=== PATIENT | female | born 1965 ===

== ENCOUNTER 2016-05-17 10:31 | Emergency (ER) | payer SELFPAY ==
[2016-05-17 10:31] VITALS: BMI 41.3
[2016-05-17 10:38] VITALS: TEMP 98.2
[2016-05-17] MEDS ORDERED: Sodium Chloride 0.9% 1,000 ML IV STA (11:43)
--- NOTE | 2016-05-17 11:49 | ED PDOC ---
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 states yesterday she developed a gradual onset dizziness and feeling faint. Pt. states she felt soreness (not numbness contrary to triage note) throughout her entire body during this and shortly after she developed a pressure like headache throughout her body. Pt. feels that headaches stems from her upper back which radiates to her head. States that symptoms have persisted prompting ED visit today. Pt. states she has not taken any medications to help relieve symptoms. Denies chest pain, SOB, weakness, LOC, N/V, hx of similar episodes, hearing changes, head injury, abdominal pain. Past Medical History Reviewed: Historical Data, Nursing Documentation, Vital Signs Vital Signs: Last Vital Signs Temp 98.2 F 05/17/16 10:37 Pulse 93 H 05/17/16 10:37 Resp 20 05/17/16 10:37 BP 146/78 05/17/16 10:37 Pulse Ox 98 05/17/16 11:52 - Medical History PMH: HTN, Hyperlipidemia, Pneumonia Denies: Chronic Kidney Disease - Surgical History Surgical History: Denies: Appendectomy - Family History Family History: States: Diabetes, Hypertension - Home Medications Home Medications: Ambulatory Orders Medication Instructions Recorded Lisinopril [Zestril] 20 mg PO DAILY 05/12/15 Aspirin [Aspirin Chewable] 81 mg PO DAILY #0 chew 06/16/15 Lisinopril [Zestril] 20 mg PO DAILY #0 tab 06/16/15 amLODIPine [Norvasc] 5 mg PO DAILY 06/16/15 Meclizine [Meclizine*] 25 mg PO Q12 PRN #10 tab 10/07/15 Dicyclomine [Bentyl] 20 mg PO TID #30 tab 02/23/16 Lisinopril [Zestril] 20 mg PO DAILY 04/01/16 amLODIPine [Norvasc] 5 mg PO DAILY 04/01/16 Meclizine [Meclizine*] 1 - 2 tab PO Q6 PRN #30 tab 05/17/16 - Allergies Allergies/Adverse Reactions: Allergies Allergy/AdvReac Type Severity Reaction Status Date / Time shrimp Allergy RASH Verified 12/30/16 08:26 Review of Systems ROS Statement: Except As Marked, All Systems Reviewed And Found Negative Neurological: Positive for: Headache, Dizziness Physical Exam - Reviewed Nursing Documentation Reviewed: Yes Vital Signs Reviewed: Yes - Physical Exam Appears: Positive for: Well, Non-toxic, No Acute Distress Head Exam: Positive for: ATRAUMATIC, NORMAL INSPECTION, NORMOCEPHALIC Skin: Positive for: Normal Color, Warm. Negative for: Rash Eye Exam: Positive for: Normal appearance, EOMI, PERRL. Negative for: Nystagmus ENT: Positive for: Normal ENT Inspection Neck: Positive for: Normal, Painless ROM Cardiovascular/Chest: Positive for: Regular Rate, Rhythm Respiratory: Positive for: CNT, Normal Breath Sounds Gastrointestinal/Abdominal: Positive for: Normal Exam, Soft. Negative for: Tenderness Back: Positive for: Normal Inspection. Negative for: L CVA Tenderness, R CVA Tenderness, Vertebral Tenderness Extremity: Positive for: Normal ROM Neurologic/Psych: Positive for: Alert, clicker operator II-XII (grossly intact), Oriented, Gait (steady and unassisted; pt. seen climbing on and off stretcher without difficulty), Other (negative romberg). Negative for: Motor/Sensory Deficits, Aphasia, Facial Droop - Laboratory Results Result Diagrams: 05/17/16 12:27 05/17/16 12:27 - ECG ECG: Positive for: Interpreted By Me ECG Rhythm: Positive for: Sinus Rhythm. Negative for: ST/T Changes Rate: 85 O2 Sat by Pulse Oximetry: 98 - Progress ED Course And Treament: Labs ordered. EKG ordered. CT head w/o contrast ordered. Reglan 10mg IV, antivert 50mg PO, IV NS bolus given. CT head w/o contrast: negative. Re-evaluation Time: 14:09 (Reports good relief of dizziness and headache. ) Condition: Re-examined, Improved Disposition - Clinical Impression Clinical Impression: Vertigo - Patient ED Disposition Is Patient to be Admitted: No - Disposition Referrals: [facility] [Outside] Disposition: Routine/Home Disposition Time: 14:10 Condition: IMPROVED Prescriptions: Meclizine [Meclizine*] 1 - 2 tab PO Q6 PRN #30 tab PRN Reason: vertigo Instructions: Vertigo (ED) Print Language: NEPALI
--- NOTE | 2016-05-17 12:28 | CT ---
PROCEDURE: CT HEAD WITHOUT CONTRAST. HISTORY: Headache and dizziness COMPARISON: 03/20/2012 TECHNIQUE: Axial computed tomography images were obtained through the head/brain without intravenous contrast. Radiation dose: Total exam DLP = 774.54 mGy-cm. FINDINGS: HEMORRHAGE: No intracranial hemorrhage. BRAIN: Krueger-white matter differentiation is preserved. There is no mass, mass effect or abnormal extra-axial fluid collection. VENTRICLES: The ventricles are normal in size, shape and configuration. CALVARIUM: The skull base and calvarium are normal. PARANASAL SINUSES: Predominantly clear. MASTOID AIR CELLS: Predominantly clear. OTHER FINDINGS: None. IMPRESSION: No acute intracranial abnormality.
[2016-05-17 12:34] LABS: BASO # 0.1 K/uL (0.0-0.2); BASO % 0.7 % (0.0-2.0); EOS # 0.1 K/uL (0.0-0.7); EOS % 1.2 % (0.0-4.0); HEMATOCRIT 45.9 % (34.0-47.0); LYMPH % 19.3 % (20.0-40.0); MEAN CELL VOLUME 89.2 fl (81.0-99.0); MEAN CORPUSCULAR HEMOGLOBIN 30.7 pg (27.0-31.0); MEAN CORPUSCULAR HGB CONC 34.4 g/dL (33.0-37.0); MEAN PLATELET VOLUME 8.6 fl (7.2-11.7); MONO # 0.7 K/uL (0.0-0.8); MONO % 6.4 % (0.0-10.0); NEUT # 7.5 K/uL (1.8-7.0); NEUT % 72.4 % (50.0-75.0); NRBC % 0.1 % (0.0-0.0); WHITE BLOOD COUNT 10.3 K/uL (4.8-10.8)
[2016-05-17 13:19] LABS: CHLORIDE 106 mmol/L (98-107); POTASSIUM 3.8 MMOL/L (3.6-5.0); SODIUM 144 mmol/l (132-148)
[2016-05-17 13:21] LABS: BILIRUBIN,TOTAL 0.7 mg/dl (0.2-1.3); CARBON DIOXIDE 26 mmol/L (22-30); GFR AFRICAN-AMERICAN > 60
[2016-05-17 13:22] LABS: ALKALINE PHOSPHATASE 129 U/L (38-126); ALT/SGPT 49 U/L (9-52); AST/SGOT 42 U/L (14-36); BLOOD UREA NITROGEN 11 mg/dl (7-17); CALCIUM 9.5 mg/dL (8.4-10.2); GLUCOSE,RANDOM 113 mg/dL (65-105); TOTAL PROTEIN 8.9 G/DL (6.3-8.2)
[2016-05-17 14:11] VITALS: PULSE 85
[2016-05-17 14:28] VITALS: BP 137/85; RESP 19; O2SAT 99
--- NOTE | 2016-05-17 18:47 | CARD ---
APPROVED REPORT EKG Measurement Heart [id number] CT 166P56 [id number] <Conclusion> Normal sinus rhythm Possible Left atrial enlargement Borderline ECG
== END 2016-05-17 14:35 | disposition home or self-care (01) ==
LOC: H.ER 10:31
DX: R51 Headache (principal); R42 Dizziness and giddiness; I10 Essential (primary) hypertension; E78.5 Hyperlipidemia, unspecified

== ENCOUNTER 2016-07-27 00:50 | Emergency (ER) | payer OTHER, SELFPAY ==
[2016-07-27 00:50] VITALS: BMI 41.3
[2016-07-27] MEDS ORDERED: Sodium Chloride 0.9% 1,000 ML IV STA (02:27)
--- NOTE | 2016-07-27 02:29 | ED PDOC ---
HPI: Abdomen Time Seen by Provider: 07/27/16 01:11 Chief Complaint (Nursing): Abdominal Pain Chief Complaint (Provider): Abdominal Pain History Per: Patient Additional Complaint(s): 51 yo female, presents to ED for Left flank pain x 2 days, worse at night. Pt denies any fever chills, hematuria, dysuria, nausea or vomiting. Past Medical History Reviewed: Nursing Documentation, Vital Signs Vital Signs: Last Vital Signs Temp 98.1 F 07/27/16 05:06 Pulse 78 07/27/16 05:06 Resp 16 07/27/16 05:06 BP 136/80 07/27/16 05:06 Pulse Ox 98 07/28/16 05:47 - Medical History PMH: Graves' Disease, HTN, Hyperlipidemia, Pneumonia Denies: Chronic Kidney Disease - Surgical History Surgical History: Denies: Appendectomy - Family History Family History: States: Diabetes, Hypertension - Home Medications Home Medications: Ambulatory Orders Medication Instructions Recorded Lisinopril [Zestril] 20 mg PO DAILY 05/12/15 Aspirin [Aspirin Chewable] 81 mg PO DAILY #0 chew 06/16/15 Lisinopril [Zestril] 20 mg PO DAILY #0 tab 06/16/15 amLODIPine [Norvasc] 5 mg PO DAILY 06/16/15 Meclizine [Meclizine*] 25 mg PO Q12 PRN #10 tab 10/07/15 Dicyclomine [Bentyl] 20 mg PO TID #30 tab 02/23/16 Lisinopril [Zestril] 20 mg PO DAILY 04/01/16 amLODIPine [Norvasc] 5 mg PO DAILY 04/01/16 Meclizine [Meclizine*] 1 - 2 tab PO Q6 PRN #30 tab 05/17/16 Dicyclomine [Bentyl] 10 mg PO QID PRN #10 cap 07/27/16 - Allergies Allergies/Adverse Reactions: Allergies Allergy/AdvReac Type Severity Reaction Status Date / Time shrimp Allergy RASH Verified 07/27/16 01:30 Review of Systems ROS Statement: Except As Marked, All Systems Reviewed And Found Negative Gastrointestinal: Positive for: Abdominal Pain Physical Exam - Reviewed Nursing Documentation Reviewed: Yes Vital Signs Reviewed: Yes - Physical Exam Appears: Positive for: Well, Non-toxic, No Acute Distress Head Exam: Positive for: ATRAUMATIC, NORMAL INSPECTION, NORMOCEPHALIC Skin: Positive for: Normal Color, Warm, DRY Eye Exam: Positive for: EOMI, Normal appearance, PERRL ENT: Positive for: Normal ENT Inspection Neck: Positive for: Normal, Painless ROM Cardiovascular/Chest: Positive for: Regular Rate, Rhythm Respiratory: Positive for: CNT, Normal Breath Sounds Gastrointestinal/Abdominal: Positive for: Normal Exam, Bowel Sounds, Soft Back: Positive for: Normal Inspection Extremity: Positive for: Normal ROM Neurologic/Psych: Positive for: Alert, Oriented - Laboratory Results Result Diagrams: 07/27/16 02:35 07/27/16 02:35 - ECG O2 Sat by Pulse Oximetry: 98 Medical Decision Making Medical Decision Making: IV access established and treatment initiated with Bentyl and Toradol. Pt feeling greatly improved on re-eval CBC, COMP and UA resulted WNL Pt educated on all results and demonstrated full understanding On re-eval, abdomen soft non tender and non distended. Pt stable for discharge at this time. Imaging studies not clinically indicated. Advised to return to ED if at anytime condition worsens Disposition - Clinical Impression Clinical Impression: Abdominal cramps - Patient ED Disposition Is Patient to be Admitted: No - Disposition Disposition: Routine/Home Disposition Time: 04:00 Condition: STABLE Prescriptions: Dicyclomine [Bentyl] 10 mg PO QID PRN #10 cap PRN Reason: Pain, Mild (1-3) Instructions: Gas and Bloating (ED), Abdominal Pain (ED) Print Language: YEMENI - POA Present On Arrival: None
[2016-07-27 02:39] LABS: BASO # 0.1 K/uL (0.0-0.2); BASO % 0.7 % (0.0-2.0); EOS # 0.2 K/uL (0.0-0.7); EOS % 1.7 % (0.0-4.0); HEMATOCRIT 42.5 % (34.0-47.0); LYMPH # 2.4 K/uL (1.0-4.3); MEAN CELL VOLUME 90.7 fl (81.0-99.0); MEAN CORPUSCULAR HEMOGLOBIN 30.2 pg (27.0-31.0); MEAN CORPUSCULAR HGB CONC 33.3 g/dL (33.0-37.0); MEAN PLATELET VOLUME 8.4 fl (7.2-11.7); MONO # 1.2 K/uL (0.0-0.8); MONO % 11.5 % (0.0-10.0); NEUT % 64.1 % (50.0-75.0); NRBC % 0.1 % (0.0-0.0); RED CELL DISTRIBUTION WIDTH 13.7 % (11.5-14.5); WHITE BLOOD COUNT 10.9 K/uL (4.8-10.8)
[2016-07-27 02:43] LABS: CHLORIDE 104 mmol/L (98-107)
[2016-07-27 02:44] LABS: POTASSIUM 3.9 MMOL/L (3.6-5.0); SODIUM 141 mmol/l (132-148)
[2016-07-27 02:46] LABS: ALB/GLOB RATIO 1.1 (1.0-2.1); ALKALINE PHOSPHATASE 108 U/L (38-126); ALT/SGPT 40 U/L (9-52); AST/SGOT 36 U/L (14-36); BILIRUBIN,TOTAL 0.4 mg/dl (0.2-1.3); BLOOD UREA NITROGEN 16 mg/dl (7-17); CARBON DIOXIDE 25 mmol/L (22-30); GFR AFRICAN-AMERICAN > 60; GLUCOSE,RANDOM 102 mg/dL (65-105); TOTAL PROTEIN 8.3 G/DL (6.3-8.2)
[2016-07-27 02:47] LABS: CALCIUM 9.2 mg/dL (8.4-10.2)
[2016-07-27 02:48] LABS: RBC URINE 2 /hpf (0-3); URINE BACTERIA RARE (<OCC); URINE BILIRUBIN NEGATIVE (NEGATIVE); URINE BLOOD NEGATIVE (NEGATIVE); URINE COLOR YELLOW (YELLOW); URINE GLUCOSE (UA) NEG (Normal); URINE KETONE NEGATIVE (NEGATIVE); URINE LEUKOCYTE ESTERASE NEG Leu/uL (Negative); URINE PROTEIN NEGATIVE (NEGATIVE); URINE UROBILINOGEN 0.2-1.0 mg/dL (0.2-1.0); WBC URINE < 1 /hpf (0-5)
[2016-07-27 05:06] VITALS: BP 136/80; PULSE 78; RESP 16; TEMP 98.1
[2016-07-28 05:47] VITALS: O2SAT 98
== END 2016-07-27 05:10 | disposition home or self-care (01) ==
LOC: H.ER 00:50
DX: R10.9 Unspecified abdominal pain (principal); R14.1 Gas pain
CPT/HCPCS: 80053; 81003; 85025; 96360; 96372; 99284; J1885; J7040

== ENCOUNTER 2016-11-09 12:51 | Emergency (ER) | payer SELFPAY ==
[2016-11-09 12:52] VITALS: BMI 41.3
[2016-11-09 12:58] VITALS: RESP 16; TEMP 98.2; O2SAT 99
[2016-11-09 13:16] VITALS: BP 134/86
--- NOTE | 2016-11-09 13:27 | ED PDOC ---
HPI: Hypertension/Hypotension Time Seen by Provider: 11/09/16 13:03 Chief Complaint (Nursing): High Blood Pressure Chief Complaint (Provider): Dizziness History Per: Patient History/Exam Limitations: no limitations Onset/Duration Of Symptoms: Hrs (morning prior to arrival ) Current Symptoms Are (Timing): Still Present Additional Complaint(s): Zulma Medrano is a 51 year old female with a past medical history of hypertension and Grave's disease presenting to the ED for an evaluation of dizziness associated with headache beginning this morning prior to arrival. The patient states she checked her blood pressure today and found it to be elevated. She denies chest pain, shortness of breath, peripheral weakness, or parasthesia. Provider: KARTHIK Past Medical History Reviewed: Historical Data, Nursing Documentation, Vital Signs Vital Signs: Last Vital Signs Temp 98.2 F 11/09/16 12:54 Pulse 98 H 11/09/16 12:54 Resp 16 11/09/16 12:54 BP 134/86 11/09/16 13:16 Pulse Ox 99 11/09/16 12:54 - Medical History PMH: Graves' Disease, HTN, Hyperlipidemia, Pneumonia Denies: Chronic Kidney Disease - Surgical History Surgical History: Denies: Appendectomy - Family History Family History: States: Diabetes, Hypertension - Social History Current smoker - smoking cessation education provided: No Ex-Smoker (has not smoked in the last 12 months): No Alcohol: None Drugs: Denies - Home Medications Home Medications: Ambulatory Orders Medication Instructions Recorded Lisinopril [Zestril] 20 mg PO DAILY 05/12/15 Aspirin [Aspirin Chewable] 81 mg PO DAILY #0 chew 06/16/15 Lisinopril [Zestril] 20 mg PO DAILY #0 tab 06/16/15 amLODIPine [Norvasc] 5 mg PO DAILY 06/16/15 Meclizine [Meclizine*] 25 mg PO Q12 PRN #10 tab 10/07/15 Dicyclomine [Bentyl] 20 mg PO TID #30 tab 02/23/16 Lisinopril [Zestril] 20 mg PO DAILY 04/01/16 amLODIPine [Norvasc] 5 mg PO DAILY 04/01/16 Meclizine [Meclizine*] 1 - 2 tab PO Q6 PRN #30 tab 05/17/16 Dicyclomine [Bentyl] 10 mg PO QID PRN #10 cap 07/27/16 Meclizine [Meclizine*] 25 mg PO Q8 #15 tab 11/09/16 - Allergies Allergies/Adverse Reactions: Allergies Allergy/AdvReac Type Severity Reaction Status Date / Time shrimp Allergy RASH Verified 11/09/16 12:54 Review of Systems ROS Statement: Except As Marked, All Systems Reviewed And Found Negative Constitutional: Negative for: Weakness (no peripheral weakness ), Other (no parasthesia ) Cardiovascular: Negative for: Chest Pain Respiratory: Negative for: Shortness of Breath Neurological: Positive for: Headache, Dizziness Physical Exam - Reviewed Nursing Documentation Reviewed: Yes Vital Signs Reviewed: Yes - Physical Exam Appears: Positive for: Non-toxic, No Acute Distress Head Exam: Positive for: ATRAUMATIC, NORMOCEPHALIC Cardiovascular/Chest: Positive for: Regular Rate, Rhythm. Negative for: Murmur Respiratory: Positive for: Normal Breath Sounds. Negative for: Respiratory Distress Gastrointestinal/Abdominal: Positive for: Normal Exam, Soft. Negative for: Tenderness Extremity: Positive for: Normal ROM (full ROM) Neurologic/Psych: Positive for: Alert, Oriented (x3). Negative for: Motor/ Sensory Deficits - Laboratory Results Result Diagrams: 11/09/16 13:30 11/09/16 13:30 - ECG O2 Sat by Pulse Oximetry: 99 (RA) Pulse Ox Interpretation: Normal Medical Decision Making Medical Decision Making: Time: 13:03 Impression: Dizziness Plan: * CT Head W/O Contrast * ED EKG * CMP * CBC (with differential) * Chest Two Views (PA/LAT) [RAD] * Reevaluation Scribe Attestation: Documented by Karo Starks, acting as a scribe for Rolf Joya MD. Provider Scribe Attestation: All medical record entries made by the Scribe were at my direction and personally dictated by me. I have reviewed the chart and agree that the record accurately reflects my personal performance of the history, physical exam, medical decision making, and the department course for this patient. I have also personally directed, reviewed, and agree with the discharge instructions and disposition. Disposition - Clinical Impression Clinical Impression: Vertigo, Hypertension - Patient ED Disposition Is Patient to be Admitted: No Counseled Patient/Family Regarding: Studies Performed, Diagnosis, Need For Followup, Rx Given - Disposition Referrals: [facility] [Outside] Disposition: Routine/Home Disposition Time: 14:51 Condition: FAIR Prescriptions: Meclizine [Meclizine*] 25 mg PO Q8 #15 tab Instructions: Vertigo (ED) Forms: [facility] (Lebanese) Print Language: ICELANDIC
[2016-11-09 13:45] LABS: BASO # 0.1 K/uL (0.0-0.2); BASO % 0.6 % (0.0-2.0); EOS # 0.1 K/uL (0.0-0.7); EOS % 0.5 % (0.0-4.0); HEMATOCRIT 42.8 % (34.0-47.0); LYMPH # 2.1 K/uL (1.0-4.3); LYMPH % 17.2 % (20.0-40.0); MEAN CELL VOLUME 89.2 fl (81.0-99.0); MEAN CORPUSCULAR HEMOGLOBIN 29.9 pg (27.0-31.0); MEAN CORPUSCULAR HGB CONC 33.5 g/dL (33.0-37.0); MEAN PLATELET VOLUME 8.4 fl (7.2-11.7); MONO # 0.8 K/uL (0.0-0.8); MONO % 6.3 % (0.0-10.0); NEUT # 9.1 K/uL (1.8-7.0); NEUT % 75.4 % (50.0-75.0); RED CELL DISTRIBUTION WIDTH 13.9 % (11.5-14.5); WHITE BLOOD COUNT 12.1 K/uL (4.8-10.8)
[2016-11-09 14:02] LABS: ALB/GLOB RATIO 1.2 (1.0-2.1); ALKALINE PHOSPHATASE 111 U/L (38-126); ALT/SGPT 43 U/L (9-52); AST/SGOT 36 U/L (14-36); BILIRUBIN,TOTAL 0.6 mg/dl (0.2-1.3); BLOOD UREA NITROGEN 11 mg/dl (7-17); CALCIUM 9.4 mg/dL (8.4-10.2); CARBON DIOXIDE 25 mmol/L (22-30); CHLORIDE 104 mmol/L (98-107); GFR AFRICAN-AMERICAN > 60; GLUCOSE,RANDOM 109 mg/dL (65-105); POTASSIUM 3.8 MMOL/L (3.6-5.0); SODIUM 140 mmol/l (132-148); TOTAL PROTEIN 8.1 G/DL (6.3-8.2)
--- NOTE | 2016-11-09 14:49 | CT ---
PROCEDURE: CT HEAD WITHOUT CONTRAST. HISTORY: r/o bleed COMPARISON: Comparison is made to 05/17/2016 TECHNIQUE: Axial computed tomography images were obtained through the head/brain without intravenous contrast. Radiation dose: Total exam DLP = 20374 mGy-cm. This CT exam was performed using one or more of the following dose reduction techniques: Automated exposure control, adjustment of the mA and/or kV according to patient size, and/or use of iterative reconstruction technique. FINDINGS: HEMORRHAGE: No intracranial hemorrhage. BRAIN: No mass effect or edema. No atrophy or chronic microvascular ischemic changes. VENTRICLES: Unremarkable. No hydrocephalus. CALVARIUM: Unremarkable. PARANASAL SINUSES: Mild mucosal thickening seen at the left maxillary sinus MASTOID AIR CELLS: Unremarkable as visualized. No inflammatory changes. OTHER FINDINGS: None. IMPRESSION: No evidence of acute intracranial hemorrhage intracranial collection mass effect or midline shift.
[2016-11-09 15:08] VITALS: PULSE 87
--- NOTE | 2016-11-09 15:11 | RAD ---
HISTORY: dizziness COMPARISON: Comparison is made to 06/16/2015 TECHNIQUE: Chest PA and lateral FINDINGS: LUNGS: Small opacities at the lung bases may represent atelectasis. Otherwise no significant interval change. PLEURA: No significant pleural effusion identified. No pneumothorax apparent. CARDIOVASCULAR: The cardiac silhouette is prominent/ mildly enlarged. Normal. OSSEOUS STRUCTURES: No significant abnormalities. VISUALIZED UPPER ABDOMEN: Normal. OTHER FINDINGS: None. IMPRESSION: Bibasilar opacities may represent atelectasis. Otherwise no significant interval change.
--- NOTE | 2016-11-09 18:19 | CARD ---
APPROVED REPORT EKG Measurement Heart [id number] NV [id number] [id number] <Conclusion> Normal sinus rhythm with sinus arrhythmia Biatrial enlargement Abnormal ECG
== END 2016-11-09 15:07 | disposition home or self-care (01) ==
LOC: H.ER 12:51
DX: R42 Dizziness and giddiness (principal); I10 Essential (primary) hypertension; E05.00 Thyrotoxicosis with diffuse goiter without thyrotoxic crisis or storm; E78.5 Hyperlipidemia, unspecified; Z79.82 Long term (current) use of aspirin

== ENCOUNTER 2017-04-01 07:45 | Emergency (ER) | payer SELFPAY ==
[2017-04-01 07:45] VITALS: BMI 41.3
--- NOTE | 2017-04-01 09:12 | ED PDOC ---
HPI: General Adult Time Seen by Provider: 04/01/17 08:27 Chief Complaint (Nursing): Cough, Cold, Congestion Chief Complaint (Provider): Cough, Cold, Congestion History Per: Patient History/Exam Limitations: no limitations Onset/Duration Of Symptoms: Days (x 5) Current Symptoms Are (Timing): Still Present Additional Complaint(s): Zulma is a 51 year old female, with a past medical history of high blood pressure, who presents to the emergency department complaining of nasal congestion associated with trouble breathing through nose and sore throat X 3 days, no difficulty swallowing. Denies fever, cough, vomiting, abdominal pain, SOB, CP. PMD: Ball Past Medical History Reviewed: Historical Data, Nursing Documentation, Vital Signs Vital Signs: Last Vital Signs Temp 98.2 F 04/01/17 10:00 Pulse 68 04/01/17 10:00 Resp 14 04/01/17 10:00 BP 142/81 04/01/17 10:00 Pulse Ox 100 04/01/17 10:00 - Medical History PMH: Graves' Disease, HTN, Hyperlipidemia, Pneumonia Denies: Chronic Kidney Disease - Surgical History Surgical History: Denies: Appendectomy - Family History Family History: States: Diabetes, Hypertension - Home Medications Home Medications: Ambulatory Orders Medication Instructions Recorded Lisinopril [Zestril] 20 mg PO DAILY 05/12/15 Aspirin [Aspirin Chewable] 81 mg PO DAILY #0 chew 06/16/15 Lisinopril [Zestril] 20 mg PO DAILY #0 tab 06/16/15 amLODIPine [Norvasc] 5 mg PO DAILY 06/16/15 Meclizine [Meclizine*] 25 mg PO Q12 PRN #10 tab 10/07/15 Dicyclomine [Bentyl] 20 mg PO TID #30 tab 02/23/16 Lisinopril [Zestril] 20 mg PO DAILY 04/01/16 amLODIPine [Norvasc] 5 mg PO DAILY 04/01/16 Meclizine [Meclizine*] 1 - 2 tab PO Q6 PRN #30 tab 05/17/16 Dicyclomine [Bentyl] 10 mg PO QID PRN #10 cap 07/27/16 Meclizine [Meclizine*] 25 mg PO Q8 #15 tab 11/09/16 Azithromycin [Zithromax] 500 mg PO DAILY #4 tab 04/01/17 - Allergies Allergies/Adverse Reactions: Allergies Allergy/AdvReac Type Severity Reaction Status Date / Time shrimp Allergy RASH Verified 11/09/16 12:54 Review of Systems ROS Statement: Except As Marked, All Systems Reviewed And Found Negative Constitutional: Negative for: Fever ENT: Positive for: Throat Pain Respiratory: Positive for: Sputum, Other (Trouble breathing) Musculoskeletal: Positive for: Back Pain Physical Exam - Reviewed Nursing Documentation Reviewed: Yes Vital Signs Reviewed: Yes - Physical Exam Appears: Positive for: Well, Non-toxic, No Acute Distress (Speaking full sentences) Head Exam: Positive for: NORMAL INSPECTION Skin: Positive for: Normal Color, Warm, Dry Eye Exam: Positive for: Normal appearance ENT: Positive for: Pharynx Is (Clear), Nasal Congestion, Pharyngeal Erythema. Negative for: Tonsillar Exudate, Tonsillar Swelling Neck: Positive for: Normal Cardiovascular/Chest: Positive for: Regular Rate, Rhythm Respiratory: Positive for: Normal Breath Sounds. Negative for: Respiratory Distress Gastrointestinal/Abdominal: Positive for: Normal Exam Back: Positive for: Normal Inspection Extremity: Positive for: Normal ROM. Negative for: Deformity Neurologic/Psych: Positive for: Alert, Oriented (x 3) - ECG O2 Sat by Pulse Oximetry: 98 (RA) Pulse Ox Interpretation: Normal Medical Decision Making Medical Decision Making: Time: 08:37 Impression: Nasal Congestion Plan: - ED Urine - Influenza A B Stat - Rapid Strep Group A Antigen Scribe Attestation: Documented by Bernabe Storm, acting as a scribe for Kerri Greer MD Provider Scribe Attestation: All medical record entries made by the Scribe were at my direction and personally dictated by me. I have reviewed the chart and agree that the record accurately reflects my personal performance of the history, physical exam, medical decision making, and the department course for this patient. I have also personally directed, reviewed, and agree with the discharge instructions and disposition. Disposition - Clinical Impression Clinical Impression: Strep pharyngitis - Patient ED Disposition Is Patient to be Admitted: No - Disposition Referrals: [facility] [Outside] Disposition: Routine/Home Disposition Time: 10:23 Condition: STABLE Prescriptions: Azithromycin [Zithromax] 500 mg PO DAILY #4 tab Instructions: Strep Throat (ED) Forms: [facility] (Welsh) Print Language: AMHARIC
[2017-04-01 10:43] VITALS: BP 142/81; PULSE 68; RESP 14; TEMP 98.2
[2017-04-02 15:59] VITALS: O2SAT 98
== END 2017-04-01 10:35 | disposition home or self-care (01) ==
LOC: H.ER 07:45
DX: J02.0 Streptococcal pharyngitis (principal); E05.00 Thyrotoxicosis with diffuse goiter without thyrotoxic crisis or storm; E78.5 Hyperlipidemia, unspecified; I10 Essential (primary) hypertension; Z79.82 Long term (current) use of aspirin

== ENCOUNTER 2017-12-06 15:07 | Emergency (ER) | payer SELFPAY ==
[2017-12-06 15:07] VITALS: BMI 41.3
[2017-12-06] MEDS ORDERED: Sodium Chloride 0.9% 1,000 ML IV STA (16:44)
--- NOTE | 2017-12-06 16:47 | ED PDOC ---
HPI: Headache Chief Complaint (Provider): HEADACHE History Per: Patient (52 Y/O FEMALE H/O DM/HTN HERE WITH HEADACHE NOTED SINCE THIS MORNING. NOTES ADDITIONAL COMPLAINT OF CHEST PAIN. STATES SHE RECENTLY INCREASED LISINOPRIL FROM 20 TO 40MG DAILY 09/25 BUT DOES NOT FEEL LIKE HER BP IS CONTROLLED.) <Sukhi Rios - Last Filed: 12/06/17 19:35> <Lynn Medina - Last Filed: 12/07/17 21:35> Time Seen by Provider: 12/06/17 16:32 Chief Complaint (Nursing): Headache Past Medical History Reviewed: Historical Data, Nursing Documentation, Vital Signs Vital Signs: Last Vital Signs Temp 98.1 F 12/06/17 15:49 Pulse 91 H 12/06/17 15:49 Resp 16 12/06/17 15:49 BP 193/100 H 12/06/17 15:49 Pulse Ox 100 12/06/17 15:49 - Medical History PMH: Graves' Disease, HTN, Hyperlipidemia, Pneumonia Denies: Chronic Kidney Disease - Surgical History Surgical History: Denies: Appendectomy - Family History Family History: States: Diabetes, Hypertension <Sukhi Rios - Last Filed: 12/06/17 19:35> Vital Signs: Last Vital Signs Temp 97.9 F 12/06/17 20:12 Pulse 92 H 12/06/17 20:12 Resp 18 12/06/17 20:12 BP 145/84 12/06/17 20:12 Pulse Ox 99 12/06/17 20:12 <Lynn Medina - Last Filed: 12/07/17 21:35> - Home Medications Home Medications: Ambulatory Orders Medication Instructions Recorded RX: Lisinopril [Zestril] 20 mg PO DAILY 05/12/15 RX: Aspirin [Aspirin Chewable] 81 mg PO DAILY #0 chew 06/16/15 RX: Lisinopril [Zestril] 20 mg PO DAILY #0 tab 06/16/15 RX: amLODIPine [Norvasc] 5 mg PO DAILY 06/16/15 RX: Meclizine [Meclizine*] 25 mg PO Q12 PRN #10 tab 10/07/15 Dicyclomine [Bentyl] 20 mg PO TID #30 tab 02/23/16 Lisinopril [Zestril] 20 mg PO DAILY 04/01/16 amLODIPine [Norvasc] 5 mg PO DAILY 04/01/16 RX: Meclizine [Meclizine*] 1 - 2 tab PO Q6 PRN #30 tab 05/17/16 Dicyclomine [Bentyl] 10 mg PO QID PRN #10 cap 07/27/16 RX: Meclizine [Meclizine*] 25 mg PO Q8 #15 tab 11/09/16 Azithromycin [Zithromax] 500 mg PO DAILY #4 tab 04/01/17 Alprazolam [Xanax] 0.5 mg PO ONCE PRN #1 tab 12/06/17 - Allergies Allergies/Adverse Reactions: Allergies Allergy/AdvReac Type Severity Reaction Status Date / Time shrimp Allergy RASH Verified 12/06/17 15:49 Review of Systems ROS Statement: Except As Marked, All Systems Reviewed And Found Negative <Sukhi Rios - Last Filed: 12/06/17 19:35> Physical Exam - Reviewed Nursing Documentation Reviewed: Yes Vital Signs Reviewed: Yes - Physical Exam Appears: Positive for: Well, Non-toxic, No Acute Distress Head Exam: Positive for: ATRAUMATIC, NORMAL INSPECTION, NORMOCEPHALIC Skin: Positive for: Normal Color, Warm, DRY Eye Exam: Positive for: EOMI, Normal appearance, PERRL ENT: Positive for: Normal ENT Inspection Neck: Positive for: Normal, Painless ROM Cardiovascular/Chest: Positive for: Regular Rate, Rhythm Respiratory: Positive for: CNT, Normal Breath Sounds Gastrointestinal/Abdominal: Positive for: Normal Exam, Soft Back: Positive for: Normal Inspection Extremity: Positive for: Normal ROM Neurologic/Psych: Positive for: Alert, Oriented <Sukhi Rios - Last Filed: 12/06/17 19:35> - Laboratory Results Result Diagrams: 12/06/17 17:25 12/06/17 17:25 - ECG O2 Sat by Pulse Oximetry: 100 - Progress ED Course And Treament: EKG: SINUS TACHYCARDIA 103 BPM; NO ECTOPY NO ACUTE CHANGES HEAD CT: NAD REGLAN 10MG IV TYLENOL 975MG X 1 DOSE NS 1 LITER 500 ML PER HOUR PATIENT NOTES SHE IS PAIN-FREE. REPEAT BP 145/98 PATIENT RE-EVALUATED NOTED ANXIOUS WHILE READING BIBLE. UPON RE--INTERVIEW PATIENT STARTS LAUGHING, STATES SHE HAS BEEN STRESSED B/C SHE IS STUDYING A SUBJECT AND IS HAVING DIFFICULTY MEMORIZING IT. D/W HER IMPORTANCE OF F/U FOR EVALUATION OF HER RESPONSE TO STRESS. WILL GIVE HER INFO REGARDING [facility] <Sukhi Rios - Last Filed: 12/06/17 19:35> - Laboratory Results Result Diagrams: 12/06/17 17:25 12/06/17 17:25 <Lynn Medina - Last Filed: 12/07/17 21:35> Disposition - Patient ED Disposition Is Patient to be Admitted: No - Disposition Disposition: Routine/Home Disposition Time: 19:33 <Sukhi Rios - Last Filed: 12/06/17 19:35> <Lynn Medina - Last Filed: 12/07/17 21:35> - Clinical Impression Clinical Impression: Headache, Stress reaction - Disposition Referrals: FAMILY PROVIDER,NO [Primary Care Provider] - [facility] [Outside] Condition: FAIR Prescriptions: Alprazolam [Xanax] 0.5 mg PO ONCE PRN #1 tab PRN Reason: Anxiety Instructions: Headache, Adult, Anxiety, Adult (DC) Forms: [facility] ED School/Work Excuse Print Language: SUDANESE - PA / KST OPERATOR / Resident Statement / has reviewed & agrees with the documentation as recorded. <Lynn Medina - Last Filed: 12/07/17 21:35>
[2017-12-06 17:30] LABS: BASO % 0.3 % (0.0-2.0); EOS # 0.1 K/uL (0.0-0.7); EOS % 0.5 % (0.0-4.0); HEMOGLOBIN 15.8 g/dL (12.0-16.0); LYMPH # 2.3 K/uL (1.0-4.3); LYMPH % 17.4 % (20.0-40.0); MEAN CORPUSCULAR HEMOGLOBIN 30.7 pg (27.0-31.0); MEAN CORPUSCULAR HGB CONC 34.1 g/dL (33.0-37.0); MEAN PLATELET VOLUME 8.4 fl (7.2-11.7); MONO # 0.8 K/uL (0.0-0.8); MONO % 5.8 % (0.0-10.0); NEUT # 9.9 K/uL (1.8-7.0); NRBC % 0.1 % (0.0-0.0); RBC 5.15 Mil/uL (3.80-5.20)
--- NOTE | 2017-12-06 17:41 | CT ---
Date of service: 12/06/2017 PROCEDURE: CT HEAD WITHOUT CONTRAST. HISTORY: HEADACHE COMPARISON: Noncontrast head CT 11/09/2016. TECHNIQUE: Axial computed tomography images were obtained through the head/brain without intravenous contrast. Radiation dose: Total exam DLP = 790.10 mGy-cm. This CT exam was performed using one or more of the following dose reduction techniques: Automated exposure control, adjustment of the mA and/or kV according to patient size, and/or use of iterative reconstruction technique. FINDINGS: HEMORRHAGE: No intracranial hemorrhage. BRAIN: Normal gordon-white matter differentiation and density are appreciated throughout the cerebrum and cerebellum with the brainstem appearing unremarkable as well. There is no mass effect. There is no suspicious extra-axial fluid collection and the midline brain anatomy appears diffusely unremarkable. Minimal right basal ganglia calcifications reiterated. VENTRICLES: Unremarkable. No hydrocephalus. CALVARIUM: Unremarkable. PARANASAL SINUSES: Unremarkable as visualized. No significant inflammatory changes. MASTOID AIR CELLS: Unremarkable as visualized. No inflammatory changes. OTHER FINDINGS: None. IMPRESSION: Unremarkable noncontrast head CT, stable in the interval.
[2017-12-06 17:43] LABS: BLOOD UREA NITROGEN 15 mg/dl (7-17); GFR NON-AFRICAN AMERICAN > 60
[2017-12-06 17:44] LABS: ALBUMIN 4.3 g/dL (3.5-5.0); ALT/SGPT 40 U/L (9-52); AST/SGOT 44 U/L (14-36); CALCIUM 9.5 mg/dL (8.4-10.2)
[2017-12-06 19:20] LABS: SQUAMOUS EPITHIAL 7 /hpf (0-5); URINE BACTERIA MOD (<OCC); URINE BILIRUBIN NEGATIVE (NEGATIVE); URINE BLOOD NEGATIVE (NEGATIVE); URINE CLARITY TURBID (Clear); URINE COLOR YELLOW (YELLOW); URINE GLUCOSE (UA) NEG (Normal); URINE LEUKOCYTE ESTERASE NEG Leu/uL (Negative); URINE PROTEIN NEGATIVE (NEGATIVE); URINE UROBILINOGEN 0.2-1.0 mg/dL (0.2-1.0)
[2017-12-06 20:14] VITALS: BP 145/84; PULSE 92; RESP 18; TEMP 97.9; O2SAT 99
--- NOTE | 2017-12-07 10:46 | CARD ---
APPROVED REPORT Date of service: 12/06/2017 EKG Measurement Heart [id number] <Conclusion> Sinus tachycardia ST & T wave abnormality, consider lateral ischemia Abnormal ECG
== END 2017-12-06 20:13 | disposition home or self-care (01) ==
LOC: H.ER 15:07
DX: R51 Headache (principal); F43.9 Reaction to severe stress, unspecified; I10 Essential (primary) hypertension; Z79.899 Other long term (current) drug therapy; Z79.82 Long term (current) use of aspirin; E05.00 Thyrotoxicosis with diffuse goiter without thyrotoxic crisis or storm
CPT/HCPCS: 70450; 80053; 81003; 81025; 83735; 84484; 85025; 93005; 96374; 99285; J2765; J7030

== ENCOUNTER 2018-02-19 12:34 | Emergency (ER) | payer SELFPAY ==
[2018-02-19 12:34] VITALS: BMI 41.3
[2018-02-19 12:46] VITALS: RESP 18
--- NOTE | 2018-02-19 13:05 | ED PDOC ---
HPI: Hypertension/Hypotension Time Seen by Provider: 02/19/18 12:53 Chief Complaint (Nursing): High Blood Pressure Chief Complaint (Provider): High Blood Pressure History Per: Patient History/Exam Limitations: no limitations Current Symptoms Are (Timing): Still Present Additional Complaint(s): 52 year old female, with a past medical history of hypertension, presents to the ED complaining of a headache and is concerned her blood pressure may be elevated. Patient was seen by her PMD and was prescribed antihypertensive medications but did not get the prescriptions filled. She denies chest pain, shortness of breath, dizziness, or focal weakness. PMD: Jennie Dai Past Medical History Reviewed: Historical Data, Nursing Documentation, Vital Signs Vital Signs: Last Vital Signs Temp 98.1 F 02/19/18 12:42 Pulse 87 02/19/18 12:42 Resp 18 02/19/18 12:42 BP 194/107 H 02/19/18 12:42 Pulse Ox 99 02/19/18 12:42 - Medical History PMH: Graves' Disease, HTN, Hyperlipidemia, Pneumonia Denies: Chronic Kidney Disease - Surgical History Surgical History: No Surg Hx Denies: Appendectomy - Family History Family History: States: Diabetes, Hypertension - Immunization History Hx Tetanus Toxoid Vaccination: No Hx Influenza Vaccination: No Hx Pneumococcal Vaccination: No - Home Medications Home Medications: Ambulatory Orders Medication Instructions Recorded Lisinopril [Zestril] 20 mg PO DAILY 05/12/15 Aspirin [Aspirin Chewable] 81 mg PO DAILY #0 chew 06/16/15 Lisinopril [Zestril] 20 mg PO DAILY #0 tab 06/16/15 amLODIPine [Norvasc] 5 mg PO DAILY 06/16/15 Meclizine [Meclizine*] 25 mg PO Q12 PRN #10 tab 10/07/15 Dicyclomine [Bentyl] 20 mg PO TID #30 tab 02/23/16 Lisinopril [Zestril] 20 mg PO DAILY 04/01/16 amLODIPine [Norvasc] 5 mg PO DAILY 04/01/16 Meclizine [Meclizine*] 1 - 2 tab PO Q6 PRN #30 tab 05/17/16 Dicyclomine [Bentyl] 10 mg PO QID PRN #10 cap 07/27/16 Meclizine [Meclizine*] 25 mg PO Q8 #15 tab 11/09/16 Azithromycin [Zithromax] 500 mg PO DAILY #4 tab 04/01/17 Alprazolam [Xanax] 0.5 mg PO ONCE PRN #1 tab 12/06/17 - Allergies Allergies/Adverse Reactions: Allergies Allergy/AdvReac Type Severity Reaction Status Date / Time shrimp Allergy RASH Verified 02/19/18 12:40 Review of Systems ROS Statement: Except As Marked, All Systems Reviewed And Found Negative Cardiovascular: Negative for: Chest Pain Respiratory: Negative for: Shortness of Breath Neurological: Positive for: Headache. Negative for: Weakness (focal weakness), Dizziness Physical Exam - Reviewed Nursing Documentation Reviewed: Yes Vital Signs Reviewed: Yes - Physical Exam Appears: Positive for: Non-toxic, No Acute Distress Head Exam: Positive for: ATRAUMATIC, NORMOCEPHALIC Skin: Positive for: Normal Color, Warm, Dry Eye Exam: Positive for: Normal appearance Neck: Positive for: Normal, Painless ROM Cardiovascular/Chest: Positive for: Regular Rate, Rhythm. Negative for: Murmur Respiratory: Positive for: Normal Breath Sounds. Negative for: Wheezing, Respiratory Distress Extremity: Positive for: Normal ROM Neurologic/Psych: Positive for: Alert, Oriented (x3). Negative for: Motor/Sensory Deficits - ECG O2 Sat by Pulse Oximetry: 99 (RA) Pulse Ox Interpretation: Normal Medical Decision Making Medical Decision Making: Initial Plan: --ECG --Metoprolol 25mg PO Scribe Attestation: Documented by Ventura Starks acting as a scribe for Rolf Joya MD. Provider Scribe Attestation: All medical record entries made by the Scribe were at my direction and personally dictated by me. I have reviewed the chart and agree that the record accurately reflects my personal performance of the history, physical exam, medical decision making, and the department course for this patient. I have also personally directed, reviewed, and agree with the discharge instructions and disposition. Disposition - Clinical Impression Clinical Impression: Hypertension - Patient ED Disposition Is Patient to be Admitted: No Counseled Patient/Family Regarding: Studies Performed, Diagnosis, Need For Followup - Disposition Referrals: [facility] [Outside] Disposition: Routine/Home Disposition Time: 14:32 Condition: FAIR Additional Instructions: Fill prescriptions for blood pressure Instructions: High Blood Pressure in Adults Forms: [facility] (Gibraltarian) Print Language: HEBREW
[2018-02-19 15:10] VITALS: BP 148/96; PULSE 82; TEMP 97.8; O2SAT 100
--- NOTE | 2018-02-19 20:50 | CARD ---
APPROVED REPORT Date of service: 02/19/2018 EKG Measurement Heart [id number] [id number] <Conclusion> Normal sinus rhythm Biatrial enlargement Nonspecific ST abnormality Abnormal ECG
== END 2018-02-19 15:10 | disposition home or self-care (01) ==
LOC: H.ER 12:34
DX: I10 Essential (primary) hypertension (principal); I11.9 Hypertensive heart disease without heart failure; E05.00 Thyrotoxicosis with diffuse goiter without thyrotoxic crisis or storm; E78.5 Hyperlipidemia, unspecified; I51.7 Cardiomegaly

== ENCOUNTER 2018-03-14 12:08 | Emergency (ER) | payer SELFPAY ==
[2018-03-14 12:09] VITALS: BMI 41.3
--- NOTE | 2018-03-14 13:43 | ED PDOC ---
HPI: General Adult Time Seen by Provider: 03/14/18 12:26 Chief Complaint (Nursing): Chest Pain History Per: Patient (Zulma is here because her home BP monitor showed systolic readings of 160's and diastolics of 90's. She is on 3 BP meds (lisinopril, nifedipine and hctz). Two of these three were added by her [facility] MD 3-4 weeks ago. She had reported having right sided chest and flank pain this morning along with headaches. She no longer has chest pain at present.) History/Exam Limitations: no limitations Past Medical History Reviewed: Historical Data, Nursing Documentation, Vital Signs Vital Signs: Last Vital Signs Temp 97.1 F L 03/14/18 12:19 Pulse 92 H 03/14/18 12:19 Resp 18 03/14/18 12:19 BP 160/85 H 03/14/18 13:04 Pulse Ox 97 03/14/18 12:19 - Medical History PMH: No Chronic Diseases, Graves' Disease, HTN, Hyperlipidemia, Pneumonia Denies: Chronic Kidney Disease - Surgical History Surgical History: Denies: Appendectomy - Family History Family History: States: No Known Family Hx, Diabetes, Hypertension - Immunization History Hx Tetanus Toxoid Vaccination: No Hx Influenza Vaccination: No Hx Pneumococcal Vaccination: No - Home Medications Home Medications: Ambulatory Orders Medication Instructions Recorded Lisinopril [Zestril] 20 mg PO DAILY 05/12/15 Aspirin [Aspirin Chewable] 81 mg PO DAILY #0 chew 06/16/15 Lisinopril [Zestril] 20 mg PO DAILY #0 tab 06/16/15 amLODIPine [Norvasc] 5 mg PO DAILY 06/16/15 Meclizine [Meclizine*] 25 mg PO Q12 PRN #10 tab 10/07/15 Dicyclomine [Bentyl] 20 mg PO TID #30 tab 02/23/16 Lisinopril [Zestril] 20 mg PO DAILY 04/01/16 amLODIPine [Norvasc] 5 mg PO DAILY 04/01/16 Meclizine [Meclizine*] 1 - 2 tab PO Q6 PRN #30 tab 05/17/16 Dicyclomine [Bentyl] 10 mg PO QID PRN #10 cap 07/27/16 Meclizine [Meclizine*] 25 mg PO Q8 #15 tab 11/09/16 Azithromycin [Zithromax] 500 mg PO DAILY #4 tab 04/01/17 Alprazolam [Xanax] 0.5 mg PO ONCE PRN #1 tab 12/06/17 - Allergies Allergies/Adverse Reactions: Allergies Allergy/AdvReac Type Severity Reaction Status Date / Time shrimp Allergy RASH Verified 02/19/18 12:40 Review of Systems ROS Statement: Except As Marked, All Systems Reviewed And Found Negative Constitutional: Negative for: Fever Neurological: Positive for: Headache Physical Exam - Reviewed Nursing Documentation Reviewed: Yes Vital Signs Reviewed: Yes - Physical Exam Appears: Positive for: Well, Non-toxic, No Acute Distress Head Exam: Positive for: ATRAUMATIC, NORMAL INSPECTION, NORMOCEPHALIC Skin: Positive for: Normal Color, Warm, DRY Eye Exam: Positive for: EOMI, Normal appearance, PERRL ENT: Positive for: Normal ENT Inspection Neck: Positive for: Normal, Painless ROM Cardiovascular/Chest: Positive for: Regular Rate, Rhythm Respiratory: Positive for: CNT, Normal Breath Sounds Gastrointestinal/Abdominal: Positive for: Normal Exam, Soft Back: Positive for: Normal Inspection Extremity: Positive for: Normal ROM Neurologic/Psych: Positive for: Alert, Oriented - ECG O2 Sat by Pulse Oximetry: 97 Disposition - Clinical Impression Clinical Impression: Hypertension - Patient ED Disposition Is Patient to be Admitted: No Doctor Will See Patient In The: Office Counseled Patient/Family Regarding: Diagnosis, Need For Followup - Disposition Referrals: [facility] [Outside] [facility] [Outside] Disposition: Routine/Home Disposition Time: 13:00 Condition: STABLE Instructions: High Blood Pressure in Adults Print Language: ALBANIAN - POA Present On Arrival: None
[2018-03-14 14:11] VITALS: BP 127/78; PULSE 78; RESP 19; TEMP 96.7; O2SAT 98
== END 2018-03-14 14:12 | disposition home or self-care (01) ==
LOC: H.ER 12:08
DX: I10 Essential (primary) hypertension (principal); E05.00 Thyrotoxicosis with diffuse goiter without thyrotoxic crisis or storm

== ENCOUNTER 2018-08-01 15:13 | Emergency (ER) | payer SELFPAY ==
[2018-08-01 15:23] VITALS: BP 156/91; PULSE 88; RESP 18; TEMP 98.4; O2SAT 98; BMI 41.5
--- NOTE | 2018-08-01 15:48 | ED PDOC ---
HPI: Headache Time Seen by Provider: 08/01/18 15:40 Chief Complaint (Nursing): Headache Chief Complaint (Provider): Headache History Per: Patient History/Exam Limitations: no limitations Onset/Duration Of Symptoms: Hrs Current Symptoms Are (Timing): Still Present Additional Complaint(s): 53 y/o female presents to the ED for evaluation of a left sided headache involving the eye and associated numbness to the middle of the tongue that lasted for about two hours earlier today. Patient reports both symptoms have now resolved spontaneously and she presented here because she is concerned. Otherwise, patient denies history of migraines, weakness or difficulty speaking. PMD: Ansley Huang Past Medical History Reviewed: Historical Data, Nursing Documentation, Vital Signs Vital Signs: Last Vital Signs Temp 98.4 F 08/01/18 15:22 Pulse 88 08/01/18 15:22 Resp 18 08/01/18 15:22 BP 156/91 H 08/01/18 15:22 Pulse Ox 98 08/01/18 15:22 - Medical History PMH: Graves' Disease, HTN, Hyperlipidemia, Pneumonia Denies: Chronic Kidney Disease - Surgical History Surgical History: No Surg Hx Denies: Appendectomy - Family History Family History: States: Diabetes, Hypertension - Immunization History Hx Tetanus Toxoid Vaccination: No Hx Influenza Vaccination: No Hx Pneumococcal Vaccination: No - Home Medications Home Medications: Ambulatory Orders Medication Instructions Recorded Lisinopril [Zestril] 20 mg PO DAILY 05/12/15 Aspirin [Aspirin Chewable] 81 mg PO DAILY #0 chew 06/16/15 Lisinopril [Zestril] 20 mg PO DAILY #0 tab 06/16/15 amLODIPine [Norvasc] 5 mg PO DAILY 06/16/15 Meclizine [Meclizine*] 25 mg PO Q12 PRN #10 tab 10/07/15 Dicyclomine [Bentyl] 20 mg PO TID #30 tab 02/23/16 Lisinopril [Zestril] 20 mg PO DAILY 04/01/16 amLODIPine [Norvasc] 5 mg PO DAILY 04/01/16 Meclizine [Meclizine*] 1 - 2 tab PO Q6 PRN #30 tab 05/17/16 Dicyclomine [Bentyl] 10 mg PO QID PRN #10 cap 07/27/16 Meclizine [Meclizine*] 25 mg PO Q8 #15 tab 11/09/16 Azithromycin [Zithromax] 500 mg PO DAILY #4 tab 04/01/17 Alprazolam [Xanax] 0.5 mg PO ONCE PRN #1 tab 12/06/17 Acetaminophen [Tylenol 325mg tab] 325 mg PO Q6 #20 tab 05/18/18 - Allergies Allergies/Adverse Reactions: Allergies Allergy/AdvReac Type Severity Reaction Status Date / Time shrimp Allergy RASH Verified 05/18/18 19:10 Review of Systems ROS Statement: Except As Marked, All Systems Reviewed And Found Negative Neurological: Positive for: Numbness, Headache Physical Exam - Reviewed Nursing Documentation Reviewed: Yes Vital Signs Reviewed: Yes - Physical Exam Appears: Positive for: Well, Non-toxic, No Acute Distress Head Exam: Positive for: ATRAUMATIC, NORMOCEPHALIC Skin: Positive for: Normal Color, Warm, Dry Eye Exam: Positive for: Normal appearance, EOMI, PERRL Neck: Positive for: Normal, Painless ROM Cardiovascular/Chest: Positive for: Regular Rate, Rhythm. Negative for: Murmur Respiratory: Positive for: Normal Breath Sounds. Negative for: Respiratory Distress Extremity: Positive for: Normal ROM Neurological/Psych: Positive for: Awake, Alert, Symmetric/Intact Strength (equal strengths in all extremities (5/5)), Oriented (x3), Gait (steady), Cerebellar Tests (normal), slotter operator II-XII (intact), Other (no dysarthia, ). Negative for: Motor/Sensory Deficits, Facial Droop - Laboratory Results Result Diagrams: 08/01/18 15:56 08/01/18 15:56 - ECG O2 Sat by Pulse Oximetry: 98 - Progress ED Course And Treament: HEAD CT IMPRESSION: No acute intracranial findings. Incidental bilateral exophthalmos. Medical Decision Making Medical Decision Making: Time: 1541 Impression: Headache Plan: -- CT Head w/o Contrast -- CMP -- Magnesium -- Phosphorus -- CBC with Differentials Accession No. : [id number] Patient Name / ID : TEE URENA / [id number] Exam Date : 08/01/2018 15:59:28 ( Approved ) Study Comment : Sex / Age : F / 53Y Creator : Kirby Gottlieb MD Dictator : Kirby Gottlieb MD Procurement Agent : Integrated Marketing Manager : Kirby Gottlieb MD Approver2 : Report Date : 08/01/2018 16:14:38 My Comment : Date of service: 08/01/2018 PROCEDURE: CT HEAD WITHOUT CONTRAST. HISTORY: tongue numbness COMPARISON: None available. TECHNIQUE: Axial computed tomography images were obtained through the head/brain without intravenous contrast. Radiation dose: Total exam DLP = 786.91 mGy-cm. This CT exam was performed using one or more of the following dose reduction techniques: Automated exposure control, adjustment of the mA and/or kV according to patient size, and/or use of iterative reconstruction technique. FINDINGS: HEMORRHAGE: No intracranial hemorrhage. BRAIN: Normal gordon-white matter differentiation and density are appreciated throughout the cerebrum and cerebellum with the brainstem appearing unremarkable as well. There is no mass effect. There is no suspicious extra-axial fluid collection and the midline brain anatomy appears diffusely unremarkable. VENTRICLES: Unremarkable. No hydrocephalus. CALVARIUM: Unremarkable. PARANASAL SINUSES: Unremarkable as visualized. No significant inflammatory changes. MASTOID AIR CELLS: Unremarkable as visualized. No inflammatory changes. OTHER FINDINGS: Incidental bilateral exophthalmos. No gross postseptal orbital mass appreciable bilaterally. No prominent extraocular muscular hypertrophy. IMPRESSION: No acute intracranial findings. Incidental bilateral exophthalmos. Scribe Attestation: Documented by Mukesh Cardenas, acting as a scribe forSetu Rios, PA-C. Provider Scribe Attestation: All medical record entries made by the Scribe were at my direction and personally dictated by me. I have reviewed the chart and agree that the record accurately reflects my personal performance of the history, physical exam, medical decision making, and the department course for this patient. I have also personally directed, reviewed, and agree with the discharge instructions and disposition. Disposition - Clinical Impression Clinical Impression: Headache, Numbness of tongue - Patient ED Disposition Is Patient to be Admitted: No - Disposition Referrals: [facility] [Outside] Keaton Yun MD [Medical Doctor] - Disposition: Routine/Home Disposition Time: 17:19 Condition: FAIR Instructions: Headache, Adult, Paresthesias (DC) Print Language: LAO
[2018-08-01 16:12] LABS: BASO % 0.4 % (0.0-2.0); EOS # 0.1 K/uL (0.0-0.7); EOS % 0.7 % (0.0-4.0); HEMOGLOBIN 15.3 g/dL (12.0-16.0); LYMPH # 2.3 K/uL (1.0-4.3); LYMPH % 18.2 % (20.0-40.0); MEAN CELL VOLUME 91.8 fl (81.0-99.0); MEAN CORPUSCULAR HEMOGLOBIN 31.6 pg (27.0-31.0); MEAN CORPUSCULAR HGB CONC 34.5 g/dL (33.0-37.0); MEAN PLATELET VOLUME 8.5 fl (7.2-11.7); MONO # 0.7 K/uL (0.0-0.8); MONO % 5.3 % (0.0-10.0); NEUT # 9.4 K/uL (1.8-7.0); NEUT % 75.4 % (50.0-75.0); NRBC % 0.1 % (0.0-0.0); RBC 4.83 Mil/uL (3.80-5.20); RED CELL DISTRIBUTION WIDTH 13.6 % (11.5-14.5); WHITE BLOOD COUNT 12.5 K/uL (4.8-10.8)
--- NOTE | 2018-08-01 16:18 | CT ---
Date of service: 08/01/2018 PROCEDURE: CT HEAD WITHOUT CONTRAST. HISTORY: tongue numbness COMPARISON: None available. TECHNIQUE: Axial computed tomography images were obtained through the head/brain without intravenous contrast. Radiation dose: Total exam DLP = 786.91 mGy-cm. This CT exam was performed using one or more of the following dose reduction techniques: Automated exposure control, adjustment of the mA and/or kV according to patient size, and/or use of iterative reconstruction technique. FINDINGS: HEMORRHAGE: No intracranial hemorrhage. BRAIN: Normal gordon-white matter differentiation and density are appreciated throughout the cerebrum and cerebellum with the brainstem appearing unremarkable as well. There is no mass effect. There is no suspicious extra-axial fluid collection and the midline brain anatomy appears diffusely unremarkable. VENTRICLES: Unremarkable. No hydrocephalus. CALVARIUM: Unremarkable. PARANASAL SINUSES: Unremarkable as visualized. No significant inflammatory changes. MASTOID AIR CELLS: Unremarkable as visualized. No inflammatory changes. OTHER FINDINGS: Incidental bilateral exophthalmos. No gross postseptal orbital mass appreciable bilaterally. No prominent extraocular muscular hypertrophy. IMPRESSION: No acute intracranial findings. Incidental bilateral exophthalmos.
[2018-08-01 16:29] LABS: ALB/GLOB RATIO 1.2 (1.0-2.1); ALBUMIN 4.6 g/dL (3.5-5.0); ALT/SGPT 34 U/L (9-52); AST/SGOT 36 U/L (14-36); BLOOD UREA NITROGEN 12 mg/dl (7-17); CALCIUM 9.4 mg/dL (8.4-10.2); GFR NON-AFRICAN AMERICAN > 60
== END 2018-08-01 17:23 | disposition home or self-care (01) ==
LOC: H.ER 15:13
DX: R51 Headache (principal); R20.0 Anesthesia of skin; E05.00 Thyrotoxicosis with diffuse goiter without thyrotoxic crisis or storm; E78.5 Hyperlipidemia, unspecified; H05.20 Unspecified exophthalmos; I10 Essential (primary) hypertension; Z79.82 Long term (current) use of aspirin